=== PATIENT | male | born 1960 | race Caucasian/White ===

== ENCOUNTER → 2023-11-14 11:11 | Outpatient (REF) | payer OTHER, SELFPAY | LOC: RAD 11:11 | PROVIDERS: ATTENDING PHYSICIAN Registered Nurse | DX: M62.838 Other muscle spasm (principal) | CPT/HCPCS: 73030 ==

== ENCOUNTER 2023-12-29 17:42 | Inpatient (IN) | payer OTHER, SELFPAY ==
[2023-12-29 13:39] VITALS: BP 107/80
[2023-12-29 13:50] LABS: Glucose - Point of Care 103 mg/dl (70-99)
[2023-12-29 14:00] VITALS: BP 82/57
[2023-12-29 14:19] VITALS: BP 97/63
[2023-12-29 14:22] VITALS: BMI 22.5
[2023-12-29] MEDS: NSS 1000 IV ×3 (14:23→18:27)
[2023-12-29 14:46] LABS: ALT (SGPT) 67 U/L (0-50); AST (SGOT) 97 U/L (17-59); Alkaline Phosphatase 71 U/L (38-126); Blood Urea Nitrogen 13 mg/dl (9-20); Calcium 11.1 mg/dl (8.4-10.2); Carbon Dioxide 20 mmol/L (22-30); Chloride 97 mmol/L (98-107); Estimated Creatinine Clearance 43 ml/min; Glucose 154 mg/dl (70-99); Potassium 3.8 mmol/L (3.5-5.1); Sodium 138 mmol/L (135-145); Total Bilirubin 0.9 mg/dl (0.2-1.3); Total Protein 9.4 g/dl (6.3-8.2); eGFR 48.72
[2023-12-29 15:00] VITALS: BP 107/68
[2023-12-29 15:20] LABS: % Basophils 0.5 % (0-2); % Eosinophils 0.3 % (0-6); % Immature Granulocytes 1.4 % (0-0.5); % Lymphocytes 12.4 % (20.5-51.1); % Monocytes 5.7 % (1.7-9.3); % Neutrophils 79.7 % (42.2-75.2); Absolute Basophils 0.1 10^3/uL (0-0.2); Absolute Eosinophils 0.1 10^3/uL (0-0.7); Absolute Immature Granulocytes 0.4 10^3/uL (0-0.05); Absolute Lymphocytes 3.4 10^3/uL (1.2-3.4); Absolute Monocytes 1.6 10^3/uL (0.1-0.6); Absolute Neutrophils 21.9 10^3/uL (1.4-6.5); Hematocrit 48.3 % (39.0-52.0); Hemoglobin 16.9 g/dL (13.0-18.0); Mean Corpuscular Hgb 30.8 pg (27.0-31.0); Mean Platelet Volume 9.1 fL (7.4-10.4); Nucleated Red Blood Cells % 0 % (-); Platelet Count 324 10^3/uL (130-400); Red Blood Cell Count 5.49 10^6/uL (4.70-6.10); Red Cell Dist. Width 12.7 % (11.5-14.5); White Blood Cell Count 27.5 10^3/uL (4.8-10.8)
[2023-12-29 15:57] LABS: Lipase 381 U/L (23-300)
[2023-12-29 16:00] LABS: Lactic Acid 4.3 mmol/L (0.7-2.0)
--- NOTE | 2023-12-29 16:57 | ED.GENMED ---
History of Present Illness
General
Chief Complaint: Abdominal Symptoms
Source: patient and spouse
Time Seen by Provider: 12/29/23 13:46
History of Present Illness
History of Present Illness:
63-year-old male presents with some relatively sudden onset nausea vomiting diarrhea at home with some mid abdominal pain. Patient states felt like his got a pass out at home. Symptoms all began this morning. He actually felt well first thing in
the morning. On my evaluation she feels a little bit better. Minimal pain. No chest pain. No shortness of breath. No neck pain. No melena. No hematochezia. No back pain.
Past History
Past History
ED Past Medical History: HTN and Hypercholesterolemia
ED Past Surgical History: Orthopedic (Left knee arthroscopy)
Social History
Personal:
Living: with family
Employment: Employed
Phy Exam
Physical Exam
Physical Exam:
CONSTITUTIONAL Patient alert and oriented to person, place and time. Well-appearing. Vital signs reviewed.
HEAD atraumatic, normocephalic.
EYES eyelids normal to inspection, Pupils equally round and reactive to light, Extraocular muscles intact, Conjunctiva normal, Sclera normal.
NECK normal range of motion, Trachea midline, no jugular venous distention.
RESPIRATORY CHEST No respiratory distress noted, Chest expansion equal, Bilateral breath sounds clear.
CARDIOVASCULAR regular rate and rhythm, Heart sounds normal.
ABDOMEN mild diffuse tenderness, Bowel sounds normal. No distention.
BACK normal inspection, no obvious deformities
UPPER EXTREMITY range of motion normal, Motor strength normal, no cyanosis, no edema.
LOWER EXTREMITY range of motion normal, Motor strength normal, no cyanosis, no edema.
NEURO Speech normal, No focal motor deficits, Brenda coma scale 15, Memory normal, Cranial Nerves intact to screening exam.
SKIN skin warm, dry, and normal in color.
PSYCHIATRIC patient oriented to person place and time, Normal affect.
Course
Orders/Labs/Results
Orders:
Orders
12/29/23 13:44
EKG [Electrocardiogram (*1)] Urgent
Reason for Study: Vertigo / Dizzy
EKG- Treatment ONCE
12/29/23 14:11
0.9% Sodium Chloride 1000 ml [Nss] 1,000 ml IV BOLUS
12/29/23 14:19
Complete Blood Count/With Diff Urgent
Comprehensive Metabolic Panel Urgent
Lactic Acid Urgent
Lipase Urgent
12/29/23 Dinner
NPO
Allow oral meds: Yes
Allow clear liquids: Sips of Clears
12/29/23 15:25
CT Abd/pelvis W Iv Cont Urgent
Comment:
Reason For Exam: hypotension, vomiting
0.9% Sodium Chloride 1000 ml [Nss] 1,000 ml IV BOLUS
12/29/23 17:15
Admit/Transfer Patient As Directed
Co-Sign Provider:
Level of Care: Inpatient admission
Assign to:: Medical/Surgical
Physician / Group: gloria
Diagnosis: gastroenteritis
Reason for Hospitalization: gastroenteritis
Expected length of stay greater than two midnights?: Yes
ELOS- Estimated Length of Stay in days: 2
I certify the patient meets the requirements for IP care: Yes
12/29/23 17:16
Code Status As Directed
Resuscitation Status: Full Code
12/29/23 17:19
C difficile Antigen & Toxins Urgent
ALLISON Source: Feces/Stool
Specimen Description:
Norovirus by PCR Urgent
ALLISON Source: Feces/Stool
Specimen Description:
Stool Culture Urgent
ALLISON Source: Feces/Stool
Specimen Description:
12/29/23 18:08
Urinalysis Reflex To Culture Urgent
Date Specimen was Collected: 12/29/23
Time Specimen was Collected: 18:06
12/29/23 18:17
0.9% Sodium Chloride 1000 ml [Nss] 1,000 ml IV 100 mls/hr
Acetaminophen [Tylenol] 650 mg PO Q4HPRN PRN
Ondansetron Injectable [Zofran] 4 mg IV Q6HPRN PRN
12/29/23 18:17
Activity As Directed
Activity Level: As Tolerated
Vital Signs As Directed
Frequency: Per unit guidelines
DX Deep Vein Thrombosis Video Routine
12/29/23 20:00
Heparin 5,000 units SC Q12
12/29/23 22:00
Aspirin Low Dose EC [Aspir Low (Enteric Coated)] 81 mg PO HS
Cetirizine HCl [Zyrtec] 10 mg PO HS
12/30/23 06:00
Complete Blood Count/With Diff IN AM
Comprehensive Metabolic Panel IN AM
12/30/23 08:00
Allopurinol [Zyloprim] 300 mg PO DAILY
Cholecalciferol (Vitamin D3) [VITAMIN D3 (cholecalciferol)] 25 mcg PO DAILY
Cyanocobalamin [Vitamin B-12] 1,000 mcg PO DAILY
Pantoprazole [Protonix] 40 mg PO DAILY
Abnormal Lab Results
12/29/23 12/29/23
13:48 14:19
WBC 27.5 H 10^3/uL
(4.8-10.8)
Abs Immat Gran (auto) 0.4 H 10^3/uL
(0-0.05)
Absolute Neuts (auto) 21.9 H 10^3/uL
(1.4-6.5)
Absolute Monos (auto) 1.6 H 10^3/uL
(0.1-0.6)
Immature Gran % 1.4 H %
(0-0.5)
Neutrophils % 79.7 H %
(42.2-75.2)
Lymphocytes % 12.4 L %
(20.5-51.1)
Chloride 97 L mmol/L
(98-107)
Carbon Dioxide 20 L mmol/L
(22-30)
Creatinine 1.6 H mg/dL
(0.7-1.3)
Glucose 154 H mg/dl
(70-99)
Lactic Acid 4.3 H* mmol/L
(0.7-2.0)
Calcium 11.1 H mg/dl
(8.4-10.2)
AST 97 H U/L
(17-59)
ALT 67 H U/L
(0-50)
Total Protein 9.4 H g/dl
(6.3-8.2)
Albumin 6.0 H g/dl
(3.5-5.0)
Lipase 381 H U/L
(23-300)
POC Glucose 103 H mg/dl
(70-99)
12/29/23 14:19
12/29/23 14:19
Vital Signs
Initial and Last Documented VS:
Initial Vital Signs
Pulse Resp BP Pulse Ox
66 18 107/80 100
12/29/23 13:39 12/29/23 13:39 12/29/23 13:39 12/29/23 13:39
Last Documented Vital Signs
Temp Pulse Resp BP Pulse Ox
98.6 F 113 18 119/80 97
12/29/23 18:25 12/29/23 18:25 12/29/23 18:25 12/29/23 18:25 12/29/23 18:25
MDM/Problems Addressed
MDM/Problems Addressed:
Lactic acidosis, leukocytosis, dehydration, acute renal failure
*Radiology
Radiology exam reviewed: preliminary read by ED provider (No free air noted)
*Pulse Oximetry
Patient hypoxic: no
*EKG
Interpreted by ED Provider?: Yes
Rate: normal
Rhythm: sinus
[place]: normal axis
Ischemia: non-specific ST changes
*Mat Worker Interpretation
Rate: normal
Interpretation: normal
Rhythm: sinus
*Critical Care Note
Total Time (30-74mins, 75-104mins- exclusive of procedures): 40 minutes
Data Reviewed
Review of Other/Old Records Reveals: Labs (Prior labs show normal renal function)
Source: patient
Prescriptions/Medications Considered But Not Given:
Considered antibiotics but more suspect volume depletion as etiology
Patient Management
Discussion with other providers: Hospitalist
Escalation/DeEscalation of care consider admission/obs:
Patient with acute onset of vomiting diarrhea but lactic acidosis, leukocytosis and acute renal failure noted. I am assuming this is just from volume depletion but sort of odd as it was so acute in nature. Could consider sepsis but afebrile. Does
appear much better on reassessment. Admit for continued IV fluids and reassessment
ED Attending Note
-
Portions of this chart may have been created with voice recognition software.� Occasional wrong word or��sound alike� substitutions may have occurred due to the inherent limitations of voice recognition software.
Discharge Plan
Departure
Patient Disposition: Admit
Date of Disposition: 12/29/23
Time of Disposition: 16:59
Admit to: Med/Surg
Presentation/result/management discussed w/ accepting MD/DO: Hospitalist
Discharge Problem:
Acute renal failure, Acidosis, lactic, Dehydration, severe, Leukocytosis
Interventions
Interventions:
*Risk Screen - Suicide Last Done: 12/29/23 18:27
*General Assessment Last Done: 12/29/23 13:39
*ED COVID-19 Vaccine History Last Done: 12/29/23 18:27
*Nursing Disposition Last Done: 12/29/23 18:31
CG[facility] Assessment Last Done: 12/29/23 13:59
Discharge Date and Time
Discharge Date/Time: 12/29/23 18:32
--- NOTE | 2023-12-29 17:18 | HPS.HSE ---
Family Physician
-
Family Physician: Rain Puentes MD
Chief Complaint
-
diarrhea, vomiting
History of Present Illness
63-year-old male past medical history of hypertension, hypercholesterolemia, gout, GERD, presenting with acute onset of vomiting and watery diarrhea since 11 AM this morning. He had some chills but denies fever. He had some abdominal aching from
vomiting earlier but denies any abdominal pain currently. He states his blood pressure is low and he felt dizzy and like he was going to pass out. He denies any recent travel, eating any outside food or restaurant food that may have caused the
symptoms. He denies any sick contacts.
He complains of some mild left cheek swelling and pain but denies any pain in the mouth, sore throat or pain with eating.
He drinks a couple of drinks on occasion. He denies smoking or marijuana use.
Medical History
Past Medical History
Past Medical History: Reports Other (hypertension, hypercholesterolemia, gout, GERD,)
Past Surgical History: Reports Other (Left knee arthroscopy))
Social History
Tobacco: Non-smoker
Alcohol: Occasional
Drug: None
Family History
Family History: Not pertinent
Allergies / Home Medications
Allergies reflects when Allergies were last updated in [employer].
Home Medications with original date entered in [employer]
Allergy/Medication List:
Allergies
Allergy/AdvReac Type Severity Reaction Status Date / Time
No Known Allergies Allergy Verified 12/29/23 13:42
Home Medications
aspirin 81 mg tablet,delayed release 81 mg PO HS 02/11/14
cyanocobalamin (vitamin B-12) 1,000 mcg tablet 1,000 mcg PO DAILY 02/11/14
ramipril 10 mg capsule 10 mg PO DAILY 02/11/14
allopurinol 300 mg tablet 300 mg PO DAILY 12/29/23
azelastine 137 mcg (0.1 %) nasal spray 1 spray intranasal BID 12/29/23
cetirizine 10 mg tablet (Zyrtec) 10 mg PO HS 12/29/23
cholecalciferol (vitamin D3) 25 mcg (1,000 unit) tablet (Vitamin D3) 25 mcg PO DAILY 12/29/23
ipratropium bromide 21 mcg (0.03 %) nasal spray 1 spray intranasal BID 12/29/23
nebivolol 5 mg tablet 5 mg PO DAILY 12/29/23
pantoprazole 40 mg tablet,delayed release (Protonix) 40 mg PO DAILY 12/29/23
psyllium 1 packet PO DAILY 12/29/23
Review of Systems
-
History Source: Patient
A 12 point ROS was completed and negative except as noted: Yes
Constitutional: Reports See HPI
EENT: Reports No Symptoms
Respiratory: Reports No Symptoms
Cardiac: Reports No Symptoms
Abdomen/GI: Reports See HPI
: Reports No Symptoms
Musculoskeletal: Reports No Symptoms
Skin: Reports No Symptoms
Neurological: Reports No Symptoms
Endocrine: Reports No Symptoms
Hematologic/Lymphatic: Reports No Symptoms
Psych: Reports No Symptoms
Physical Exam
Vital Signs
Vital Signs
Temp Pulse Resp BP Pulse Ox
97.7 F 93 18 107/68 100
12/29/23 14:00 12/29/23 15:00 12/29/23 15:55 12/29/23 15:00 12/29/23 14:19
Physical Exam
General: Well Developed, Well Nourished and No Apparent Distress
HEENT: NormoCephalic, Moist mucous membranes and Atraumatic
Respiratory: Clear
Cardiac: S1/S2 and Regular Rhythm; No Murmur or Rub
GI: Soft, Non Tender, Non Distended and Normal Bowel Sounds; No Organomegaly
Rectal: Deferred by Provider
Musculoskeletal: No Clubbing, No Cyanosis and No Edema
Skin: No Rash
Neuro: Nonfocal/grossly intact
Laboratory Results
-
12/29/23 14:19
12/29/23 14:19
Laboratory Results
Lactic Acid 4.3 mmol/L (0.7-2.0) H* 12/29/23 14:19
Total Bilirubin 0.9 mg/dl (0.2-1.3) 12/29/23 14:19
AST 97 U/L (17-59) H 12/29/23 14:19
ALT 67 U/L (0-50) H 12/29/23 14:19
Alkaline Phosphatase 71 U/L (38-126) 12/29/23 14:19
Lipase 381 U/L (23-300) H 12/29/23 14:19
Data Reviewed
-
Lab Data: Labs Reviewed by me
Old Records: Reviewed
Impression/Plan
-
IMPRESSION:
PLAN:
# Sepsis (leukocytosis, tachycardia, hypotension) secondary to presumed gastroenteritis
-Lactate of 4
-Lipase 380
-IV fluids
-Hold ramipril
-CT abdomen pelvis pending to evaluate for colitis
-Check stool cultures, norovirus, C. difficile
-N.p.o.
# Acute kidney injury
-Monitor with IV fluids
# Hypercalcemia secondary to dehydration
-Monitor with IV fluids
Chronic transaminitis
-Stable compared to 2 years ago
Essential hypertension
-Hold ramipril, nebivolol
Hypercholesterolemia
Gout
-Continue allopurinol
GERD
-Continue Protonix
Full code
DVT prophylaxis�heparin
N.p.o.
[2023-12-29 18:14] LABS: Urine Albumin 3+ (Neg - Trace); Urine Bilirubin Negative (Negative); Urine Character Very Cloudy (Clear); Urine Color Yellow; Urine Glucose Trace (Negative); Urine Ketone Negative (Negative); Urine Leukocyte Trace (Negative); Urine Nitrite Negative (Negative); Urine Occult Blood 1+ (Negative); Urine Specific Gravity 1.015 (<1.030); Urine Urobilinogen Negative (Neg - 1+)
[2023-12-29 18:22] LABS: Urine Bacteria Few (Negative); Urine White Cell 26-30 /HPF (0-5)
[2023-12-29 18:25] VITALS: BP 119/80
[2023-12-29] MEDS: ASPIR LOW (ENTERIC COATED) 81 MG PO (20:13)
[2023-12-29] MEDS: HEPARIN 5000 UNITS SC (20:13)
[2023-12-29] MEDS: ZYRTEC 10 MG PO (20:13)
[2023-12-29 23:12] VITALS: BP 102/64
[2023-12-30] MEDS: NSS 1000 IV (06:07)
[2023-12-30 07:30] VITALS: BP 128/78
[2023-12-30 08:20] LABS: ALT (SGPT) 35 U/L (0-50); AST (SGOT) 46 U/L (17-59); Albumin 3.6 g/dl (3.5-5.0); Alkaline Phosphatase 41 U/L (38-126); Blood Urea Nitrogen 22 mg/dl (9-20); Calcium 8.1 mg/dl (8.4-10.2); Carbon Dioxide 23 mmol/L (22-30); Chloride 107 mmol/L (98-107); Estimated Creatinine Clearance 50 ml/min; Glucose 81 mg/dl (70-99); Potassium 3.7 mmol/L (3.5-5.1); Sodium 136 mmol/L (135-145); Total Protein 5.8 g/dl (6.3-8.2); eGFR 57.18
--- NOTE | 2023-12-30 08:33 | W.PN.HOSP.TC ---
Addendum entered and electronically signed by Marco Harrison MD 12/30/23 12:01:
I saw and evaluated the patient. I reviewed the resident�s note and agree with findings and plan as documented in the resident�s note.
Still with loose stool but improving. Denies abdominal pain, chest pain, shortness of breath.
Gen: NAD, AAOx3.
Eyes: EOMI, PERRLA, no scleral icterus.
ENMT: L soft tissue edema and tenderness to palpation in the left submandibular region. The left submandibular gland is slightly enlarged.
Neck: supple.
CV: RRR, +S1/S2, no m/r/g.
Resp: CTAB, no rales, wheezes, or rhonchi.
Abd: +BS, soft, NT, ND
Skin: No rashes.
Neuro: CN 2-12 intact, non-focal.
Psych: Normal mood and affect.
ADELE due to severe sepsis (POA) due to acute gastroenteritis:
-no evidence of bacterial infection at this moment
-Continue IV fluids, trend Cr
-Leukocytosis has improved
-C diff NEG, follow rest of stool Cx
-advance to clears
Enlarged left subfibular gland, left submandibular soft tissue edema:
-Check CT scan of the neck with IV contrast tomorrow (awaiting improvement in Cr)
Original Note:
Today's Communication/Plan
-
CT neck with IV contrast tentatively tomorrow
Cepacol
Monitor BP while holding enalapril and nebivolol
Abdominal ultrasound
Assessment / Plan
Assessment / Plan
Assessment: 63-year-old male with PMH of essential hypertension, gout, hypercholesterolemia who presented to the hospital with acute onset of watery diarrhea, nausea and vomiting on 12/29/2023 at 11 AM after coming back from a 2 mile walk. Symptoms
are associated with dizziness but patient did not pass out. He denied eating out but endorsed eating a left over salad from 4 days ago prior to the day before admission. He also reports left sided jaw swelling and pain rated 6/10 with palpation,
that he noticed 2 days ago. He denies abdominal pain, joint pain, headaches, fever, chills, chest pain, shortness of breath or urinary symptoms.
Impression:
Presentation with acute diarrhea
Improving
Acute unifocal left neck/jaw swelling and pain
Leukocytosis
Acute dehydration
Acute anemia
Lactic acidosis
Resolved
Increase lipase
Resolved
Hypercalcemia
Resolved
Transaminitis
Resolved
Conditions prior to admission:
Essential hypertension
Hypercholesterolemia
Gout
GERD
Plan:
Presentation with acute diarrhea/nausea/vomiting
-Most likely viral gastroenteritis vs bacterial.
-CT ABD/pelvis 12/29/2023 with rectal bleed and continuation
-Patient remains afebrile, WBC counts, trending down.
-Stool negative for blood, negative C. difficile antigen and toxins.
-Culture for Salmonella, Shigella, Campylobacter pending.
-N.p.o.
-Continue IV fluid.
-No indication for antibiotics.
Acute unifocal left neck/jaw swelling
-Most likely left sialolithiasis vs sialadenitis given acute dehydration.
-Mild saliva expression with no purulence on saliva gland message. Patient remains afebrile, bacterial sialoadenitis less likely.
-CT neck with IV contrast tomorrow if creatinine improves.
-Cepacol lozenges
-Monitor for improvement.
Leukocytosis
-WBC count 27.5 on admission.
-Improving, likely reactive.
-Continue to monitor.
-No indication for antibiotics.
Acute dehydration
-Patient hemoconcentrated at presentation.
-Most likely cause of patient's presentation with increased lipase, lactate, hypercalcemia which have all resolved with rehydration.
-Continue IV fluid and monitor electrolytes.
Acute transaminitis
-Resolved
-Abdominal pain on admission, Anne Marie baker WNKali.
-Patient likely passed stone, lipase and transaminitis normalized today.
-Most likely due to CBD stone given associated high serum lipase, patient still has gallbladder.
-RUQ abdominal ultrasound, assess for cholelithiasis.
-Monitor for fever curve leukocytosis resolution.
Essential hypertension
-Hold ramipril, nebivolol
-Monitor blood pressure
Hypercholesterolemia
-Patient takes rosuvastatin 40 mg daily
Gout
-Continue allopurinol
GERD
-Continue Protonix
CODE STATUS: Full code
DVT prophylaxis�heparin

Data:
1. Fluid attenuation in the rectum compatible with a diarrheal illness.
2. Urinary bladder wall thickening. Recommend correlation with a urinalysis.
Anticipated Discharge: 24 - 48 hours
Subjective/Interval History
-
Date of Service: December 30, 2023
Objective Data
-
Labs:
Laboratory Results
12/30/23
07:23
WBC Pending
Hgb Pending
Hct Pending
Plt Count Pending
Sodium 136
Potassium 3.7
Chloride 107
Carbon Dioxide 23
BUN 22 H
Creatinine 1.4 H
Glucose 81
Calcium 8.1 L D
Total Bilirubin 1.0
AST 46
ALT 35
Alkaline Phosphatase 41
Vital Signs:
Vital Signs
Temp Pulse Resp BP Pulse Ox
97.9 F 78 16 128/78 98
12/30/23 07:30 12/30/23 07:30 12/30/23 07:30 12/30/23 07:30 12/30/23 07:30
I&O
12/29/23 12/30/23 12/31/23
06:59 06:59 06:59
Intake Total 120 / 120
Balance 120 / 120
[2023-12-30 08:36] LABS: % Basophils 0.3 % (0-2); % Eosinophils 0.4 % (0-6); % Immature Granulocytes 0.5 % (0-0.5); % Lymphocytes 17.9 % (20.5-51.1); % Monocytes 9.3 % (1.7-9.3); % Neutrophils 71.6 % (42.2-75.2); Absolute Eosinophils 0.1 10^3/uL (0-0.7); Absolute Immature Granulocytes 0.1 10^3/uL (0-0.05); Absolute Lymphocytes 2.5 10^3/uL (1.2-3.4); Absolute Monocytes 1.3 10^3/uL (0.1-0.6); Hematocrit 32.9 % (39.0-52.0); Hemoglobin 11.6 g/dL (13.0-18.0); Mean Corp Hgb Conc. 35.3 g/dL (33.0-37.0); Mean Corpuscular Hgb 31.9 pg (27.0-31.0); Mean Corpuscular Volume 90.4 fL (80.0-94.0); Mean Platelet Volume 9.1 fL (7.4-10.4); Nucleated Red Blood Cells % 0 % (-); Platelet Count 167 10^3/uL (130-400); Red Blood Cell Count 3.64 10^6/uL (4.70-6.10); Red Cell Dist. Width 12.8 % (11.5-14.5); White Blood Cell Count 13.9 10^3/uL (4.8-10.8)
[2023-12-30 09:16] LABS: Lipase 126 U/L (23-300)
[2023-12-30] MEDS: HEPARIN 5000 UNITS SC ×2 (09:32→20:52)
[2023-12-30] MEDS: ZYLOPRIM 300 MG PO (09:33)
[2023-12-30] MEDS: VITAMIN B-12 1000 MCG PO (09:33)
[2023-12-30] MEDS: PROTONIX 40 MG PO (09:33)
[2023-12-30] MEDS: VITAMIN D3 (cholecalciferol) 25 MCG PO (09:33)
[2023-12-30 09:35] LABS: Lactic Acid 0.9 mmol/L (0.7-2.0)
[2023-12-30 11:26] LABS: HDL Cholesterol 53 mg/dl; LDL Cholesterol, Calculated 35 mg/dl; Total Cholesterol 128 mg/dl (50-199); Triglyceride 201 mg/dl (10-149); Very Low Density Lipoprotein 40 mg/dl (0-30)
--- NOTE | 2023-12-30 12:08 | CM ---
Patient seen at bedside. IA completed
DX: Gastroenteritis
Patient lives at home in a 2 story home with .
PLOF: Independent, drives
No needs anticipated
PCP: Dr. Chant[facility]
Pharmacy: [address], [place]
PLAN: Discharge to home when stable. No needs
[2023-12-30 15:14] VITALS: BP 148/94
--- NOTE | 2023-12-30 15:33 | W.PN.UPDATE ---
Update Note
Progress Note Update
Patient presenting with acute onsets of left firm, tender and erythematous left submandibular swelling, most likely parotitis vs sialolithiasis. Patient initially scheduled for CT scan for tomorrow, due to creatinine of 1.4. However, due to left
parotid gland swelling, patient was taken to CT scan. Patient remains afebrile with worsening parotid gland swelling.
Impression:
Presentation with left tender, and erythematous submandibular soft tissue swelling
-CT neck with IV contrast consistent with left parotitis, no evidence of sialolithiasis within the parotid gland.
-Patient remains afebrile.
-Aggressive IV hydration with LR @125cc/hr to limit contrast-induced nephropathy.
-Start Unasyn, 3g Q6H.
-Start Metronidazole 500mg Q8H.
-ID consult.
-Monitor for kidney function.
[2023-12-30] MEDS: ANESTHETIC LOZENGE 1 LOZENGE PO ×2 (16:07→20:51)
[2023-12-30] MEDS: LR 1000 IV (17:06)
[2023-12-30] MEDS: FLAGYL 500 MG 100 IV (17:07)
[2023-12-30] MEDS: NSS IV (17:23)
[2023-12-30] MEDS: UNASYN IV (18:19)
[2023-12-30] MEDS: ZYRTEC 10 MG PO (20:52)
[2023-12-30] MEDS: ASPIR LOW (ENTERIC COATED) 81 MG PO (20:52)
[2023-12-30 23:39] VITALS: BP 140/85
[2023-12-31] MEDS: UNASYN IV ×3 (00:07→11:15)
[2023-12-31] MEDS: FLAGYL 500 MG 100 IV ×2 (01:51→10:08)
[2023-12-31] MEDS: LR 1000 IV (01:53)
[2023-12-31 06:00] VITALS: BMI 23.2
[2023-12-31 07:00] VITALS: BP 141/83
[2023-12-31] MEDS: HEPARIN 5000 UNITS SC (08:57)
[2023-12-31] MEDS: VITAMIN B-12 1000 MCG PO (08:58)
[2023-12-31] MEDS: ZYLOPRIM 300 MG PO (08:58)
[2023-12-31] MEDS: VITAMIN D3 (cholecalciferol) 25 MCG PO (08:58)
[2023-12-31] MEDS: PROTONIX 40 MG PO (08:58)
[2023-12-31 09:23] LABS: % Basophils 0.4 % (0-2); % Eosinophils 1.3 % (0-6); % Immature Granulocytes 0.4 % (0-0.5); % Lymphocytes 17.8 % (20.5-51.1); % Monocytes 6.8 % (1.7-9.3); % Neutrophils 73.3 % (42.2-75.2); Absolute Eosinophils 0.1 10^3/uL (0-0.7); Absolute Lymphocytes 1.7 10^3/uL (1.2-3.4); Absolute Monocytes 0.6 10^3/uL (0.1-0.6); Absolute Neutrophils 6.8 10^3/uL (1.4-6.5); Hematocrit 34.1 % (39.0-52.0); Hemoglobin 11.8 g/dL (13.0-18.0); Mean Corp Hgb Conc. 34.6 g/dL (33.0-37.0); Mean Corpuscular Hgb 30.6 pg (27.0-31.0); Mean Corpuscular Volume 88.3 fL (80.0-94.0); Mean Platelet Volume 8.4 fL (7.4-10.4); Nucleated Red Blood Cells % 0 % (-); Platelet Count 157 10^3/uL (130-400); Red Blood Cell Count 3.86 10^6/uL (4.70-6.10); Red Cell Dist. Width 12.5 % (11.5-14.5); White Blood Cell Count 9.3 10^3/uL (4.8-10.8)
--- NOTE | 2023-12-31 09:54 | W.PN.HOSP.TC ---
Today's Communication/Plan
-
d/c
Assessment / Plan
Assessment / Plan
Gen: NAD, AAOx3.
Eyes: EOMI, PERRLA, no scleral icterus.
ENMT: L soft tissue edema and tenderness to palpation in the left submandibular region (significantly improved from yesterday). The left submandibular gland is slightly enlarged.
Neck: supple.
CV: remains RRR, +S1/S2, no m/r/g.
Resp: remains CTAB, no rales, wheezes, or rhonchi.
Abd: +BS, soft, NT, ND
Skin: No rashes.
Neuro: CN 2-12 intact, non-focal.
Psych: Normal mood and affect.
CT neck w/IV: Findings most consistent with left parotiditis, as described. No evidence of sialolithiasis within the parotid gland or along the course of the left parotid duct. No focal collection or abscess.
Abd U/S: No evidence of cholelithiasis, gallbladder wall thickening or biliary tract dilatation. Common bile duct, pancreas and abdominal aorta significantly obscured, most likely by overlying bowel gas. Small simple right renal cyst.
DAELE due to severe sepsis (POA) due to acute gastroenteritis:
-ADELE resolved with IVFs
-diarrhea has resolved
-Leukocytosis has resolved
-C diff NEG, follow rest of stool Cx
-UCx NG
-advance to regular diet
Acute L parotiditis:
-pt with enlarged left submadibular gland, left submandibular soft tissue edema
-CT neck with IV contrast above
-has been on Unasyn/Flagyl, transition to Augmentin for 10 further days
Other problems:
Acute transaminitis, likely due to acute infection and hypotension, resolved
Essential hypertension: cont to hold antihypertensives
Hypercholesterolemia
Gout: cont Allopurinol
GERD: cont PPI
FULL/heparin
Medically cleared for discharge.
Total time spent on d/c = 36 min. This included today's physical exam, progress note, review of laboratory and diagnostic data, preparation of discharge documents and prescriptions, and discussions about the pt's hospital course and discharge plan
with the patient and other lpn or medical assistant involved in the patient's care.
Anticipated Discharge: Today
Subjective/Interval History
-
Date of Service: December 31, 2023
Diarrhea has resolved. Left facial pain has improved.
Objective Data
-
Labs:
Laboratory Results
12/31/23
09:18
WBC 9.3
Hgb 11.8 L
Hct 34.1 L
Plt Count 157
Sodium Pending
Potassium Pending
Chloride Pending
Carbon Dioxide Pending
BUN Pending
Creatinine Pending
Glucose Pending
Calcium Pending
Total Bilirubin Pending
AST Pending
ALT Pending
Alkaline Phosphatase Pending
Vital Signs:
Vital Signs
Temp Pulse Resp BP Pulse Ox
98.2 F 67 16 141/83 97
12/31/23 07:00 12/31/23 07:00 12/31/23 07:00 12/31/23 07:00 12/31/23 07:00
I&O
12/30/23 12/31/23 01/01/24
06:59 06:59 06:59
Intake Total 120 / 120 3760 / 3760
Balance 120 / 120 3760 / 3760
[2023-12-31 10:07] LABS: ALT (SGPT) 30 U/L (0-50); AST (SGOT) 46 U/L (17-59); Albumin 3.9 g/dl (3.5-5.0); Alkaline Phosphatase 44 U/L (38-126); Blood Urea Nitrogen 12 mg/dl (9-20); Calcium 8.9 mg/dl (8.4-10.2); Carbon Dioxide 25 mmol/L (22-30); Chloride 106 mmol/L (98-107); Estimated Creatinine Clearance 70 ml/min; Glucose 105 mg/dl (70-99); Potassium 3.7 mmol/L (3.5-5.1); Sodium 136 mmol/L (135-145); Total Bilirubin 0.9 mg/dl (0.2-1.3); Total Protein 6.1 g/dl (6.3-8.2); eGFR > 60.00
[2023-12-31] MEDS: LR IV (11:14)
--- NOTE | 2023-12-31 11:53 | CM ---
Patient seen bedside, discussed plan for discharge today. Patient reports he has transportation home. CM will continue to follow for all discharge planning needs.
Plan; home no needs.
[2023-12-31 12:03] VITALS: BP 128/87
--- NOTE | 2023-12-31 12:16 | SUR.PHASEI ---
when reviewing discharge instructions pt noticed pharmacy antibiotic was sent to was wrong. Correct pharmacy was updated in medical record and Dr Harrison was aware. He will sent prescription to [facility].
--- NOTE | 2023-12-31 14:10 | W.DCSUMMARY ---
Discharge Summary
Discharge Data
Date of Admission: 12/29/23
Date of Discharge: 12/31/23
-
Pending Results: Yes
Additional Pending Results:
stool culture
Hospital Course
Primary diagnoses:
Acute kidney injury due to severe sepsis due to acute gastroenteritis
Acute left parotitis
Secondary diagnoses:
Acute transaminitis, likely due to acute infection and hypotension, resolved
Essential hypertension
Hypercholesterolemia
Gout
Gastroesophageal reflux disease
Consultants:
None
Imaging:
CT neck w/IV: Findings most consistent with left parotiditis, as described. No evidence of sialolithiasis within the parotid gland or along the course of the left parotid duct. No focal collection or abscess.
Abd U/S: No evidence of cholelithiasis, gallbladder wall thickening or biliary tract dilatation. Common bile duct, pancreas and abdominal aorta significantly obscured, most likely by overlying bowel gas. Small simple right renal cyst.
63-year-old male who presented with chief complaints of diarrhea and vomiting as outlined in the H&P done on admission. Hospital course per problem list:
ADELE due to severe sepsis (POA) due to acute gastroenteritis: The patient was treated with aggressive IV fluids. His acute kidney injury resolved. His diarrhea resolved. His leukocytosis resolved. C. difficile toxin was negative. The rest of his
stool culture studies are pending at this time. Urine culture was no growth. He was initially n.p.o. and was tolerating regular diet at the time of discharge.
Acute L parotiditis: The patient had an enlarged left submandibular gland and left submandibular soft tissue edema. CT neck with IV contrast above. Patient was initially on Unasyn and Flagyl and was transitioned to Augmentin for 10 further days at
the time of discharge.
Discharge Plan
-
Patient Disposition: Home (Routine Discharge)
Discharge Diagnosis/Procedures: Acute parotitis, viral gastroenteritis, acute kidney injury
Condition: Good
Diet: Other diet
Additional Diets: Heart healthy
Activity: As tolerated
Driving Restrictions: As prior to admission
Bathing Restrictions: None
Blood Work: BMP and CBC in 1 week, prescription from PCP
Activity Restrictions/Additional Instructions:
restart Ramipril and Nebivolol tomorrow
Referrals:
Rain Puentes MD [Family Provider] - in less than 1 week
Prescriptions:
New
amoxicillin-pot clavulanate 875-125 mg tablet
1 tab PO BID Qty: 21 0RF
Continued
cyanocobalamin (vitamin B-12) 1,000 mcg Tablet
1,000 mcg PO DAILY
aspirin 81 MG tablet,delayed release (DR/EC)
81 mg PO HS
ramipril 10 MG capsule
10 mg PO DAILY
cetirizine [Zyrtec] 10 mg Tablet
10 mg PO HS
pantoprazole [Protonix] 40 mg Tablet,Delayed Release (Dr/Ec)
40 mg PO DAILY
allopurinol 300 mg Tablet
300 mg PO DAILY
azelastine 137 mcg (0.1 %) spray,non-aerosol
1 spray INTRANASAL BID
ipratropium bromide 21 mcg (0.03 %) spray,non-aerosol
1 spray INTRANASAL BID
cholecalciferol (vitamin D3) [Vitamin D3] 25 mcg (1,000 unit) Tablet
25 mcg PO DAILY
nebivolol 5 mg tablet
5 mg PO DAILY
psyllium Packet
1 packet PO DAILY
Discharge Orders:
Discharge Patient (As Directed); Ordered 12/31/23
Ordered By: Marco Harrison
Discharge Date and Time
Discharge Date/Time: 12/31/23 12:45
Print Language: [id number]
== END 2023-12-31 12:45 | disposition home or self-care (01) | DRG 872 ==
LOC: 4 WEST ACU 17:42
PROVIDERS: Student in an Organized Health Care Education/Training Program; ADMITTING PHYSICIAN Hospitalist; ATTENDING PHYSICIAN Internal Medicine; EMERGENCY PHYSICIAN Emergency Medicine; FAMILY PHYSICIAN Family Medicine
DX: A41.9 Sepsis, unspecified organism (principal); N17.9 Acute kidney failure, unspecified; E87.20 Acidosis, unspecified; R65.20 Severe sepsis without septic shock; A08.4 Viral intestinal infection, unspecified; K11.21 Acute sialoadenitis; I10 Essential (primary) hypertension; I95.9 Hypotension, unspecified; M10.9 Gout, unspecified; K21.9 Gastro-esophageal reflux disease without esophagitis; E78.00 Pure hypercholesterolemia, unspecified; E83.52 Hypercalcemia
CPT/HCPCS: 51798; 70491; 74177; 76700; 80053; 80061; 81003; 81015; 82962; 83605; 83690; 85025; 87045; 87046; 87086; 87324; 87427; 87449; 87798; 93005; 96360; 99291; Q9967

== ENCOUNTER → 2024-03-27 13:17 | Outpatient (REF) | payer OTHER, SELFPAY | LOC: RAD 13:17 | PROVIDERS: ATTENDING PHYSICIAN Family Medicine | DX: I65.22 Occlusion and stenosis of left carotid artery (principal) | CPT/HCPCS: 93880 ==